=== PATIENT | female | born 1990 | race Caucasian/White ===

== ENCOUNTER 2019-10-31 01:32 | Emergency (ER) | payer OTHER ==
[~2019-10-31] VITALS: Ht 172.7 cm; Wt 72.7 kg
[2019-10-31] MEDS ORDERED: ondansetron/PF 4mg/2ml inj IV ONE (01:45)
[2019-10-31] MEDS ORDERED: normal saline 1000ML IV soln IVB ONE (01:45)
[2019-10-31 02:11] LABS: CLARITY,URINE CLOUDY (Clear); COLOR,URINE YELLOW (Yellow); GLUCOSE, URINE NEGATIVE (Neg); KETONES,URINE 40 mg/dl (Neg); LEUKOCYTE ESTERASE ,URINE NEGATIVE (Neg); NITRITES, URINE NEGATIVE (Neg); OCCULT BLOOD,URINE NEGATIVE (Neg); PH,URINE 5.5 (4.8-8.0); PROTEIN,URINE 30 mg/dl (Neg); UROBILINOGEN,URINE 0.2 E.U/dL (0.2-1.0)
[2019-10-31 02:12] LABS: BASOPHILS % (AUTO) 0.3 % (0-1); HEMATOCRIT 44.1 % (35.0-45.0); MONOCYTES # (AUTO) 0.9 X10'3 (0-0.9); RED BLOOD COUNT 4.64 X10'6 (4.20-5.60); RED CELL DISTRIBUTION WIDTH 12.8 % (11.5-14.5)
[2019-10-31 02:14] LABS: EOSINOPHILS % (AUTO) 0 % (0-6); HEMOGLOBIN 14.9 g/dl (12.0-16.0); LYMPHOCYTES # (AUTO) 1.6 X10'3 (1.1-4.8); LYMPHOCYTES % (AUTO) 12.3 % (21-51); MEAN CORPUSCULAR HGB CONC 33.7 g/dL (33.0-36.5); MEAN PLATELET VOLUME 8.6 FL (7.4-10.4); MONOCYTES % (AUTO) 6.7 % (2-12); NEUTROPHILS # (AUTO) 10.6 X10'3 (1.8-7.7); NEUTROPHILS % (AUTO) 80.7 % (42-75); PLATELET COUNT 300 X10'3 (140-440); WHITE BLOOD COUNT 13.2 X10'3 (4.5-11.0)
[2019-10-31 02:17] LABS: UA COLLECTION TYPE CLN CATCH MIDSTREAM
[2019-10-31 02:18] LABS: AMORPHOUS URATES 4+; BACTERIA,URINE FEW /HPF (Neg); RBC,URINE NONE SEEN /HPF (0-2); SQUAMOUS EPITHELIAL CELL,UR FEW /LPF (FEW); WBC,URINE NONE SEEN /HPF (0-4)
[2019-10-31 02:23] LABS: ALANINE AMINOTRANSFERASE 20 U/L (12-78); ALBUMIN 4.3 G/DL (3.4-5.0); ALBUMIN/GLOBULIN RATIO 1.2 (1.1-1.5); ALKALINE PHOSPHATASE 45 IU/L (46-116); ANION GAP 11 (8-16); ASPARTATE AMINO TRANSFERASE 17 U/L (10-37); BILIRUBIN,TOTAL 0.6 MG/DL (0.1-1.0); BLOOD UREA NITROGEN 9 MG/DL (7-18); BUN/CREATININE RATIO 11.1 (6.6-38.0); CALCIUM 9.4 MG/DL (8.5-10.1); CHLORIDE 102 MMOL/L (99-107); CREATININE 0.81 MG/DL (0.40-0.90); GLUCOSE 147 MG/DL (70-104); POTASSIUM 3.5 MMOL/L (3.5-5.1); SODIUM 137 MMOL/L (135-145); TOTAL CARBON DIOXIDE 23.7 MMOL/L (24-32); eGFR 85 ML/MIN
[2019-10-31] MEDS ORDERED: ONDA4TAB6 PO (02:32)
[2019-10-31 02:40] VITALS: BP 140/80
== END 2019-10-31 02:43 | disposition home or self-care (01) ==
LOC: ER 01:32
DX: O21.8 Other vomiting complicating pregnancy (principal); Z3A.01 Less than 8 weeks gestation of pregnancy
CPT/HCPCS: 36415; 80053; 81001; 85025; 96361; 96374; 99283; J2405; J7030

== ENCOUNTER 2020-01-06 06:59 | Emergency (ER) | payer MEDICAID ==
[~2020-01-06] VITALS: Ht 172.7 cm; Wt 72.0 kg
[~2020-01-06 06:59] MED LIST: ONDA4TAB6 PO
[2020-01-06] MEDS ORDERED: metoclopramide 5 mg/ml inj IV ONE (07:30)
[2020-01-06] MEDS ORDERED: normal saline 1000ML IV soln IVB ONE (07:30)
[2020-01-06] MEDS ORDERED: PROC25SU31 RC (07:35)
[2020-01-06 08:55] VITALS: BP 130/85
== END 2020-01-06 09:43 | disposition home or self-care (01) ==
LOC: ER 06:59
DX: O21.8 Other vomiting complicating pregnancy (principal); Z3A.16 16 weeks gestation of pregnancy; Z79.899 Other long term (current) drug therapy
CPT/HCPCS: 96361; 96374; 99283; J2765; J7030

== ENCOUNTER 2021-09-18 05:00 | Emergency (ER) | payer MEDICAID, OTHER ==
[~2021-09-18] VITALS: Ht 172.7 cm; Wt 81.8 kg
[2021-09-18] MEDS ORDERED: ondansetron 4mg rapidly disintigrating tab PO ONE (05:30)
[2021-09-18] MEDS ORDERED: normal saline 1000ML IV soln IVB ONE (06:15)
[2021-09-18 06:53] LABS: CLARITY,URINE SLIGHTLY CLOUDY (Clear); COLOR,URINE YELLOW (Yellow); GLUCOSE, URINE NEGATIVE (Neg); KETONES,URINE >=80 mg/dl (Neg); LEUKOCYTE ESTERASE ,URINE NEGATIVE (Neg); NITRITES, URINE NEGATIVE (Neg); OCCULT BLOOD,URINE NEGATIVE (Neg); PROTEIN,URINE 30 mg/dl (Neg); UROBILINOGEN,URINE 0.2 E.U/dL (0.2-1.0)
[2021-09-18 06:54] LABS: BASOPHILS % (AUTO) 0.4 % (0-1); EOSINOPHILS % (AUTO) 0 % (0-6); HEMATOCRIT 46.3 % (35.0-45.0); HEMOGLOBIN 15.6 g/dl (12.0-16.0); LYMPHOCYTES # (AUTO) 1.7 X10'3 (1.1-4.8); MEAN CORPUSCULAR HEMOGLOBIN 31.7 PG (27.0-31.0); MEAN CORPUSCULAR HGB CONC 33.7 g/dL (33.0-36.5); MEAN CORPUSCULAR VOLUME 94.1 FL (78-98); MEAN PLATELET VOLUME 9.1 FL (7.4-10.4); MONOCYTES # (AUTO) 0.9 X10'3 (0-0.9); MONOCYTES % (AUTO) 7.9 % (2-12); NEUTROPHILS # (AUTO) 8.7 X10'3 (1.8-7.7); NEUTROPHILS % (AUTO) 76.7 % (42-75); PLATELET COUNT 317 X10'3 (140-440); RED BLOOD COUNT 4.92 X10'6 (4.20-5.60); RED CELL DISTRIBUTION WIDTH 13.3 % (11.5-14.5); WHITE BLOOD COUNT 11.4 X10'3 (4.5-11.0)
[2021-09-18 07:06] LABS: UA COLLECTION TYPE CLN CATCH MIDSTREAM
[2021-09-18 07:25] LABS: BACTERIA,URINE FEW /HPF (Neg); RBC,URINE 0-2 /HPF (0-2); SQUAMOUS EPITHELIAL CELL,UR MANY /LPF (FEW); WBC,URINE 0-4 /HPF (0-4)
--- NOTE | 2021-09-18 07:30 | NUR ---
PT AMBULATED TO/FROM RESTROOM WITHOUT INCIDENT.
[2021-09-18 07:40] LABS: URINE HCG NEGATIVE (NEG)
[2021-09-18 07:50] VITALS: BP 152/99
--- NOTE | 2021-09-18 08:28 | NUR ---
LAB AT BEDSIDE.
[2021-09-18 09:04] LABS: ALANINE AMINOTRANSFERASE 17 U/L (12-78); ALBUMIN 3.6 G/DL (3.4-5.0); ALBUMIN/GLOBULIN RATIO 1.2 (1.1-1.5); ALKALINE PHOSPHATASE 51 IU/L (46-116); ANION GAP 13 (8-16); ASPARTATE AMINO TRANSFERASE 15 U/L (10-37); BILIRUBIN,TOTAL 0.5 MG/DL (0.1-1.0); BLOOD UREA NITROGEN 9 MG/DL (7-18); BUN/CREATININE RATIO 13.2 (6.6-38.0); CALCIUM 7.6 MG/DL (8.5-10.1); CHLORIDE 102 MMOL/L (99-107); CREATININE 0.68 MG/DL (0.40-0.90); GLUCOSE 112 MG/DL (70-104); SODIUM 136 MMOL/L (135-145); TOTAL CARBON DIOXIDE 21.2 MMOL/L (24-32); TOTAL PROTEIN 6.6 G/DL (6.4-8.2); eGFR > 90 ML/MIN
[2021-09-18] MEDS ORDERED: ONDA4TAB12 PO (09:08)
[2021-09-18] MEDS ORDERED: potassium Cl 20 mEq SR tablet PO STA (09:13)
[2021-09-18] MEDS ORDERED: POTA-207 PO (09:14)
== END 2021-09-18 09:34 | disposition home or self-care (01) ==
LOC: ER 05:01
DX: R11.2 Nausea with vomiting, unspecified (principal); Z20.822 Contact with and (suspected) exposure to COVID-19; R10.84 Generalized abdominal pain; R50.9 Fever, unspecified; E87.6 Hypokalemia; Z72.89 Other problems related to lifestyle; Z79.899 Other long term (current) drug therapy
CPT/HCPCS: 36415; 80053; 81001; 81025; 85025; 87635; 96360; 96361; 99283; C9803; J7030

== ENCOUNTER 2024-10-02 21:16 | Emergency (ER) | payer MEDICAID, OTHER ==
[~2024-10-02] VITALS: Ht 172.7 cm; Wt 70.0 kg
[~2024-10-02 21:16] MED LIST changes: +ONDA-243 PO
[2024-10-02] MEDS: LIDOcaine 1% 30ml preserv. free vial IJ ONE (22:08)
[2024-10-02] MEDS ORDERED: CEPH-585 PO (22:41)
[2024-10-02 22:49] VITALS: BP 118/72; PULSE 74; RESP 18; TEMP 98; O2SAT 97
== END 2024-10-02 22:51 | disposition home or self-care (01) ==
LOC: ER 21:17
DX: S51.821A Laceration with foreign body of right forearm, initial encounter (principal); X58.XXXA Exposure to other specified factors, initial encounter; Y93.89 Activity, other specified; Y92.89 Other specified places as the place of occurrence of the external cause; Y99.8 Other external cause status
CPT/HCPCS: 12001; 73090; 99283; A6258; A6446